=== PATIENT | female | born 1990 | race Caucasian/White ===

== ENCOUNTER → 2020-08-06 | Outpatient (CLI) | payer BC ==
--- NOTE | 2020-08-06 13:01 | US ---
EXAMINATION TYPE: Transabdominal DATE OF EXAM: 08/06/2020 12:32 PM COMPARISON: NONE CLINICAL HISTORY: R68.89 Abnormal clinical findings falling BHCG. HcG decreasing EXAM PERFORMED: Transvaginal (TV) and Transabdominal (TA) EXAM MEASUREMENTS: GESTATIONAL AGE / DATING Physician Established: ( weeks/ days) EDC: Dates by LMP: ( weeks/ days) EDC: Dates by First Scan: ( weeks/ days) EDC: Dates by Current Scan for: ( weeks/ days) EDC: MATERNAL ANATOMY Uterus: 9.0 x 4.7 x 4.3 cm Right Ovary: 3.9 x 1.6 x 2.4 cm Left Ovary: 3.9 x 1.6 x 2.4 cm Post CDS / Adnexa: wnl Presence of free fluid: No Presence of corpus luteal cyst: Yes, left ovary measuring 1.3 x 1.1 x 1.0 cm Presence of subchorionic bleed: No GESTATION / SURVEY IUP: No IUP seen at this time Date of LMP: 06/24/2020 Beta HcG (if available): 314 per patient No IUP visualized. Tiny anechoic area visualized within endometrium measuring 0.2 cm. Endometrium me asures 1.0 cm. Complex cyst left ovary measuring 1.3 x 1.1 x 1.0 cm Heterogeneous anteverted uterus.Endometrium thickened to 12 mm. Tiny 2 to 3 mm central anechoic area could reflect early gestational sac but is nonspecific. No yolk sac or pole. No free fluid. Both ovaries seen. Within the left ovary there is a 1.8 cm thin-walled cyst and peripheral hypervascu lar 1.3 cm thick-walled cyst suspected corpus luteal cyst. IMPRESSION: If beta hCG values are truly declining, ongoing would be favored. Ultrasound fin dings could reflect too early to visualize intrauterine . Ectopic not entirely exc luded. Serial beta hCG and ultrasound follow-up advised.
== END | disposition home or self-care (01) ==
LOC: RADUSWWP 12:03
PROVIDERS: ATTEND Obstetrics & Gynecology Obstetrics
DX: O00.90 Unspecified ectopic pregnancy without intrauterine pregnancy (principal)
CPT/HCPCS: 76801; 76817

== ENCOUNTER 2021-07-27 16:58 | Outpatient (CLI) | payer BC ==
[2021-07-27 19:30] VITALS: BP 127/70; PULSE 73; RESP 17; TEMP 97.8
--- NOTE | 2021-09-17 09:22 | P.MSEPDOC ---
Presenting Problems - Arrival Data Date of Arrival on Unit: 07/27/21 Time of Arrival on Unit: 16:58 Mode of Transport: Ambulatory - Complaint OB-Reason for Admission/Chief Complaint: Decreased Movement Medical History - Information : 1 Para: 0 Term: 0 : 0 Abortions: Spontaneous or Elective: 0 Number of Living Children: 0 - Gestational Age Gestational Age by EMILIE (wks/days): 27 Weeks and 2 Days Review of Systems - Review of Systems Constitutional: No problems Breast: No problems ENT: No problems Cardiovascular: No problems Respiratory: No problems Gastrointestinal: No problems Genitourinary: No problems Musculoskeletal: No problems Neurological: No problems Skin: No problems Vital Signs - Temperature Temperature: 97.8 F Temperature Source: Temporal Artery Scan - Pulse Pulse Oximetery Pulse Rate: 73 Pulse Assessment Method: Pulse Oximetry - Respirations Respiratory Rate: 17 Oxygen Delivery Method: Room Air O2 Sat by Pulse Oximetry: 98 - Blood Pressure Right Arm Blood Pressure: 127/70 Blood Pressure Mean: 89 Blood Pressure Source: Automatic Cuff Medical Screen Scoring - Assessment - Baby A Baseline FHR: 140 Heart Rate - NICHD Category: Category I (Normal) Physician Notification - Physician Notified Physician Notified Date: 07/27/21 Physician Notified Time: 17:40 Physician: Jackie Sanchez New Order Received: Yes - Notification Comment Comment: Spoke with Dr. Sanchez regarding pt coming into triage with C/O decreased movement, reviewed pt's category 1 strip and 30 seconds irritable contractions seen per [place], none felt per pt. Orders received include obtaining a urine sample - if clear, discharge home with pre-term labor instructions and instructions to increase fluids as well as follow up in the office tomorrow. Maternal Triage Index - Maternal Triage Index Presenting for scheduled procedure w/no complaint: No - Stat/Priority 1 Stat Priority 1: No - Urgent/Priority 2 Urgent Priority 2: Yes Provider Notified: Jackie Sanchez Provider Notified Time: 17:40 Criteria Met for Priority 2: Pt presents to triage with C/O decreased movement Disposition - Disposition OB Disposition: Discharge to home Discharge Date: 07/27/21 Discharge Time: 17:55 I agree with the RN Medical Screening Exam: Yes Case reviewed; plan agreed upon as documented in EMR&OBIX.: Yes Diagnosis: DECREASED MOVEMENTS, SECOND TRIMESTER, FETUS 1
== END 2021-07-27 17:55 | disposition home or self-care (01) ==
LOC: FBPOP 16:58
PROVIDERS: ATTEND Obstetrics & Gynecology Obstetrics
DX: O36.8120 Decreased fetal movements, second trimester, not applicable or unspecified (principal); Z3A.27 27 weeks gestation of pregnancy
CPT/HCPCS: 99213

== ENCOUNTER 2021-08-27 13:54 | Emergency (ER) | payer BC ==
--- NOTE | 2021-08-27 21:05 | ED ---
General Adult HPI - General Chief complaint: Upper Respiratory Infection Stated complaint: Cough-32 weeks preg. Time Seen by Provider: 08/27/21 21:04 Source: patient, RN notes reviewed Mode of arrival: ambulatory Limitations: no limitations - History of Present Illness Initial comments: 31-year-old female presents for cough. She states she's been sick for several weeks. Patient states that seemed to get better and worse again. 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 Patient states that she had fevers chills buttocks cough congestion. Patient had some posttussive emesis. Patient states that she is 32 weeks . - Related Data Home Medications Medication Instructions Recorded Confirmed Aspirin 81 mg PO DAILY 07/27/21 07/27/21 Citalopram Hydrobromide [CeleXA] 20 mg PO DAILY 07/27/21 07/27/21 metFORMIN HCL 500 mg PO DAILY 07/27/21 07/27/21 Allergies Allergy/AdvReac Type Severity Reaction Status Date / Time Sulfa (Sulfonamide Allergy Unknown Verified 08/27/21 15:41 Antibiotics) Review of Systems ROS Statement: Those systems with pertinent positive or pertinent negative responses have been documented in the HPI. ROS Other: All systems not noted in ROS Statement are negative. Past Medical History Past Medical History: No Reported History Additional Past Medical History / Comment(s): PCOS History of Any Multi-Drug Resistant Organisms: None Reported Past Surgical History: No Surgical Hx Reported Past Psychological History: Anxiety Smoking Status: Never smoker Past Alcohol Use History: None Reported Past Drug Use History: None Reported General Exam Limitations: no limitations General appearance: alert, in no apparent distress Head exam: Present: atraumatic, normocephalic, normal inspection Eye exam: Present: normal appearance, PERRL, EOMI. Absent: scleral icterus, conjunctival injection, periorbital swelling ENT exam: Present: normal exam, mucous membranes dry, mucous membranes moist Neck exam: Present: normal inspection, full ROM. Absent: tenderness, meningis mus, lymphadenopathy Respiratory exam: Present: normal lung sounds bilaterally. Absent: respiratory distress, wheezes, rales, rhonchi, stridor Cardiovascular Exam: Present: regular rate, normal rhythm, normal heart sounds. Absent: systolic murmur, diastolic murmur, rubs, gallop, clicks Course Vital Signs 08/27/21 08/27/21 15:39 21:05 Temperature 98.9 F 101 F H Pulse Rate 96 111 H Respiratory 16 18 Rate Blood Pressure 97/58 119/63 O2 Sat by Pulse 97 99 Oximetry Medical Decision Making - Medical Decision Making Patient is currently 19 positive vital signs are within normal limits. Patient discharged in stable condition. - Lab Data Lab Results 08/27/21 Range/Units 15:44 Coronavirus (PCR) Detected A (Not Detectd) Disposition Clinical Impression: COVID-19 Disposition: HOME SELF-CARE Condition: Stable Instructions (If sedation given, give patient instructions): Coronavirus Disease 2019 (COVID-19) Additional Instructions: Please return to the Emergency Department if symptoms worsen or any other concerns. Is patient prescribed a controlled substance at d/c from ED?: No Referrals: Freeman Ramirez MD [Primary Care Provider] - 1-2 days Time of Disposition: 21:05
[2021-08-27 21:08] VITALS: BP 119/63; PULSE 111; RESP 18; TEMP 101
== END 2021-08-27 21:13 | disposition home or self-care (01) ==
LOC: EC 13:54
DX: O98.513 Other viral diseases complicating pregnancy, third trimester (principal); U07.1 COVID-19; Z3A.32 32 weeks gestation of pregnancy; Z88.2 Allergy status to sulfonamides; Z79.82 Long term (current) use of aspirin
CPT/HCPCS: 87635; 99283

== ENCOUNTER 2021-10-17 01:25 | Inpatient (IN) | payer BC ==
[2021-10-17] MEDS ORDERED: OXYTOCIN 10 UNIT/ML 1 ML VIAL IM PRN (02:16)
[2021-10-17] MEDS ORDERED: CARBOPROST TROMETHAMINE 250 MCG/ML 1 ML AMP IM PRN (02:16)
[2021-10-17] MEDS ORDERED: LIDOCAINE 1% (PF) 10 MG/ML (30 ML SDV) SQ PRN (02:16)
[2021-10-17] MEDS ORDERED: METHYLERGONOVINE 0.2 MG/ML 1 ML AMP IM PRN (02:16)
[2021-10-17] MEDS ORDERED: TERBUTALINE 1 MG/ML VIAL SQ PRN (02:16)
[2021-10-17] MEDS ORDERED: BUTORPHANOL 1 MG/ML 1 ML VIAL IV PRN (02:18)
[2021-10-17] MEDS: LACTATED RINGERS 1,000 ML IV SCH ×2 (02:27→05:15)
[2021-10-17] MEDS ORDERED: OXYTOCIN 30 UNITS/500 ML NS 30 UNIT in SALINE 1 500ML.BAG IV SCH (02:30)
[2021-10-17] MEDS ORDERED: PENICILLIN G POTASSIUM 5,000,000 UNIT in DEXTROSE 5% IN WATER 100 ML IVPB ONE ×2 (02:30)
[2021-10-17] MEDS ORDERED: LACTATED RINGERS 1,000 ML IV SCH (02:30)
[2021-10-17 02:33] LABS: Basophils # (A) 0.1 k/uL (0-0.2); Basophils % (A) 1 %; Eosinophils # (A) 0.1 k/uL (0-0.7); Eosinophils % (A) 1 %; HCT 38.7 % (34.0-46.0); Lymphocytes # (A) 2.2 k/uL (1.0-4.8); Lymphocytes % (A) 17 %; MCH 31.6 pg (25.0-35.0); MCHC 33.6 g/dL (31.0-37.0); MCV 94.1 fL (80.0-100.0); Mean Platelet Volume 9.4; Monocytes # (A) 0.9 k/uL (0-1.0); Monocytes % (A) 7 %; Neutrophils # (A) 9.3 k/uL (1.3-7.7); Neutrophils % (A) 72 %; Platelet Count 268 k/uL (150-450); RBC 4.11 m/uL (3.80-5.40); RDW 14.5 % (11.5-15.5)
[2021-10-17] MEDS ORDERED: fentaNYL (PF) 50 MCG/ML 5 ML AMP ONE (04:43)
[2021-10-17] MEDS ORDERED: ROPIVACAINE 5MG/ML 20ML VIAL ONE (04:43)
[2021-10-17] MEDS ORDERED: SODIUM CHLORIDE 0.9% 100 ML BAG ONE (04:43)
[2021-10-17] MEDS: PENICILLIN G POTASSIUM 2,500,000 UNIT in DEXTROSE 5% IN WATER 100 ML IVPB SCH ×4 (06:33→16:53)
--- NOTE | 2021-10-17 08:12 | P.HPOB ---
History of Present Illness H&P Date: 10/17/21 Chief Complaint: Water broke this morning This is a 30-year-old female 3 para 0020 EDC 10/24/2021 at 39 weeks gestation who presents with the complaint of her water breaking at home. She denies vaginal bleeding or fluid leakage. Fetus is been active throughout the . Past medical history significant for anxiety and depression, and PCO OS. Past surgical history tympanic tubes placed in the ears as a child. Current medications Celexa 20 mg daily, metformin 500 mg daily, vitamin daily, baby aspirin daily. ALLERGIES include sulfa drugs to which reports a rash hives and swelling. Family history significant for type both thyroidism, height per tension, depression, Raynaud's syndrome. Social history patient is a teacher at the [employer], she is , she denies tobacco alcohol or drug use. history is significant for blood type O+, rubella status nonimmune. VDRL testing, urine culture, hepatitis B surface antigen, HIV testing, gonorrhea and chlamydia cultures all negative. One-hour Glucola 101, repeat 131. Positive group B strep cultures. On exam patient is 5 foot 3 inches, 198 pounds, blood pressure 131/83. Vital signs are stable and she is afebrile. The general physical exam is within nor mal limits. Cervix is 9 cm dilated, 90% effaced, -2 station, with a bulging fore bag. Artificial amniorrhexis reveals an abundant amount of meconium- stained fluid. heart rate is in the 140s with very good variability. Impression: 39 week intrauterine , active spontaneous labor. Meconium- stained fluid. Positive group B strep cultures, penicillin G given, 2 doses already received. Plan continue oxytocin augmentation as needed. Continue close maternal and surveillance. Epidural has been placed per patient request. Anticipating normal spontaneous vaginal delivery. Review of Systems Constitutional: Reports as per HPI Past Medical History Past Medical History: No Reported History Additional Past Medical History / Comment(s): PCOS History of Any Multi-Drug Resistant Organisms: None Reported Past Surgical History: No Surgical Hx Reported Past Psychological History: Anxiety Smoking Status: Never smoker Past Alcohol Use History: None Reported Past Drug Use History: None Reported - Past Family History Mother Family Medical History: Hypertension Medications and Allergies Home Medications Medication Instructions Recorded Confirmed Type Aspirin 81 mg PO DAILY 07/27/21 10/17/21 History Citalopram Hydrobromide [CeleXA] 20 mg PO DAILY 07/27/21 10/17/21 History metFORMIN HCL 500 mg PO DAILY 07/27/21 10/17/21 History Allergies Allergy/AdvReac Type Severity Reaction Status Date / Time Sulfa (Sulfonamide Allergy Unknown Verified 10/17/21 01:39 Antibiotics) Exam Vital Signs Temp Pulse Resp BP 10/17/21 01:38 97.7 F 85 18 131/83 Intake and Output 10/16/21 10/17/21 10/17/21 22:59 06:59 14:59 Intake Total 1100 Balance 1100 Intake: IV 1100 Other: # Voids 4 Weight 89.811 kg See dictation under HPI please Results Result Diagrams: 10/17/21 02:23 Abnormal Lab Results - Last 24 Hours (Table) 10/17/21 Range/Units 02:23 WBC 13.0 H (3.8-10.6) k/uL Neutrophils # 9.3 H (1.3-7.7) k/uL Assessment and Plan Assessment: 39 week intrauterine , labor ongoing, meconium-stained fluid, positive group B strep cultures. 2 doses of penicillin G already received per hospital protocol. Epidural placed per patient request. Plan: Continue close maternal and surveillance. Penicillin G per protocol. Oxytocin as needed. Anticipate normal spontaneous vaginal delivery. Time with Patient: Less than 30
[2021-10-17] MEDS ORDERED: diphenhydrAMINE 25 MG CAP PO PRN (10:07)
[2021-10-17] MEDS ORDERED: BENZOCAINE/MENTHOL SPRAY 1 GM/SPRAY AEROSOL TOPICAL PRN (10:07)
[2021-10-17] MEDS ORDERED: HYDROCORTISONE 2.5% RECTAL CREAM 30 GM TUBE RECTAL PRN (10:07)
[2021-10-17] MEDS ORDERED: diphenhydrAMINE 50 MG/ML 1 ML VIAL IVP PRN ×2 (10:07)
[2021-10-17] MEDS ORDERED: ZOLPIDEM 5 MG TAB PO PRN (10:07)
[2021-10-17] MEDS ORDERED: diphenhydrAMINE 50 MG CAP PO PRN (10:07)
[2021-10-17] MEDS ORDERED: LANOLIN CREAM 5 GM TUBE TOPICAL PRN (10:07)
[2021-10-17] MEDS ORDERED: SIMETHICONE 80 MG CHEWABLE PO PRN (10:07)
[2021-10-17] MEDS ORDERED: diphenhydrAMINE ELIXIR 25 MG/10 ML CUP PO PRN (10:07)
[2021-10-17] MEDS ORDERED: ACETAMINOPHEN TAB 325 MG TAB PO PRN (10:07)
--- NOTE | 2021-10-17 10:07 | P.PROBDLV ---
Vaginal Delivery Note - . Vaginal Delivery Note: This is a 30-year-old female 3 para 0020 EDC 10/24/2021 at 39 weeks gestation who presented with spontaneous amniorrhexis at home. She states the fluid was clear. She was 1 cm and 60% effaced on admission. Group B strep cultures positive, blood type O+, rubella nonimmune. Please see my dictated history and physical for details. Artificial amniorrhexis revealed dark meconium-stained fluid. Epidural was placed per her request. Oxytocin was started and titrated per hospital protocol. Patient did receive 2 doses of penicillin G per our hospital protocol. She became completely dilated at 0900 hrs. and began the second stage of labor at that time. Good maternal expulsive effort was noted. Perineal body was prepped and draped in usual sterile fashion. The perineal body was injected with 1% lidocaine and a small midline episiotomy was performed for suspicion of large head. Infant's head delivered occiput anterior and he restituted accordingly. There was no nuchal cord noted, however there was a large loop of cord noted that delivered along side the 's neck. The left or anterior shoulder was easily delivered from underneath the pubic symphysis at which time the oropharynx, nasopharynx, and external nares were all bulb suctioned on the perineal body. Patient was officially delivered of a liveborn male at 0938 hours. Umbilical cord was doubly clamped and ligated, he was handed to waiting nurses for evaluation where scores of 7 and 9 at one and 5 minutes respectively were given. The placenta delivered spontaneously, it was inspected and noted to be intact with trivascular cord and darkly meconium stained. For this reason it was sent to pathology for further evaluation. The uterus is then massaged. Inspection of cervix, vagina, perineum, periurethral, and perirectal areas revealed no extension of the small midline episiotomy. It was repaired in the usual fashion using repeat suture. Total estimated blood loss 200 mL's. Patient is requesting circumcision for her son. All sponge needle and enhancement counts are correct at the end of our procedure.
[2021-10-17] MEDS: IBUPROFEN 600 MG TAB PO SCH ×3 (10:53→23:44)
[2021-10-17] MEDS ORDERED: MEASLES-MUMPS-RUBELLA VACC/PF 12,500 UNIT/0.5 ML VIAL SQ ONE (13:51)
[2021-10-17] MEDS: SENNOSIDES-DOCUSATE SODIUM 1 EACH TAB PO SCH (21:30)
[2021-10-18] MEDS: SENNOSIDES-DOCUSATE SODIUM 1 EACH TAB PO SCH ×2 (07:41→19:32)
[2021-10-18] MEDS: IBUPROFEN 600 MG TAB PO SCH ×4 (07:41→23:52)
--- NOTE | 2021-10-18 07:53 | P.PN ---
Subjective Progress Note Date: 10/18/21 Principal diagnosis: day #1 No complaints. Baby in nursery. Positive flatus, pain well managed. Objective - Vital Signs Vital signs: Vital Signs Temp 97.7 F 10/18/21 07:33 Pulse 85 10/18/21 07:33 Resp 16 10/18/21 07:33 BP 133/85 10/18/21 07:33 Pulse Ox 98 10/18/21 04:00 Intake & Output 10/17/21 10/18/21 10/18/21 18:59 06:59 18:59 Output Total 1155 Balance -1155 Output: Urine 600 Estimated Blood Loss 400 Output, Quantitative 155 Blood Loss Other: # Voids 1 2 - Constitutional General appearance: Present: average body habitus, cooperative - EENT Eyes: Present: PERRLA ENT: Present: hearing grossly normal - Respiratory Respiratory: bilateral: CTA - Cardiovascular Rhythm: regular - Gastrointestinal General gastrointestinal: Present: normal bowel sounds - Genitourinary Genitourinary Comment(s): Fundus firm, midline, symmetric and 18 week size, nontender. - Neurologic Neurologic: Present: CNII-XII intact - Musculoskeletal Musculoskeletal: Present: gait normal, strength equal bilaterally - Psychiatric Psychiatric: Present: A&O x's 3, appropriate affect, intact judgment & insight - Labs CBC & Chem 7: 10/17/21 02:23 Assessment and Plan Assessment: Doing well day #1 Plan: Continue care. Likely discharge home tomorrow. Time with Patient: Less than 30
[2021-10-19] MEDS: IBUPROFEN 600 MG TAB PO SCH ×2 (05:51→14:51)
[2021-10-19] MEDS: SENNOSIDES-DOCUSATE SODIUM 1 EACH TAB PO SCH (07:47)
--- NOTE | 2021-10-19 09:20 | P.DS ---
Providers Date of admission: 10/17/21 01:48 Expected date of discharge: 10/19/21 Attending physician: Shantell Nguyen Primary care physician: Stated None - Discharge Diagnosis(es) (1) 39 weeks gestation of Current Visit: Yes Status: Acute (2) SROM (spontaneous rupture of membranes) Current Visit: Yes Status: Acute (3) Positive GBS test Current Visit: Yes Status: Acute (4) Status post normal vaginal delivery Current Visit: Yes Status: Acute (5) Meconium in amniotic fluid Current Visit: Yes Status: Acute Hospital Course: This is a 30 yo G1 now P1 that presented to labor and delivery with c/o SROM at home on 10/17. Patient receiving routine care which has been essentially uncomplicated. For full details the dictated history and physical. Patient was known group B beta strep positive. Patient was admitted to labor and delivery artificial rupture of membranes revealed dark meconium-stained fluid. Patient did receive epidural for analgesia. Pitocin augmentation of labor was begun, patient did receive 2 doses of antibiotics for her group beta strep prophylaxis. Patient had a normal spontaneous vaginal delivery of a viable male infant at 938, weight of 7 lbs. 13 oz. remains in the nursery. Patient has done well . She is involuting and voiding without difficulty. She is tolerating regular diet without nausea or vomiting. She states her pain is well-controlled. She will be discharged home later this evening. Patient Condition at Discharge: Good Plan - Discharge Summary New Discharge Prescriptions: No Action Aspirin 81 mg PO DAILY Citalopram Hydrobromide [CeleXA] 20 mg PO DAILY metFORMIN HCL 500 mg PO DAILY Discharge Medication List Aspirin 81 mg PO DAILY 07/27/21 [History] Citalopram Hydrobromide [CeleXA] 20 mg PO DAILY 07/27/21 [History] metFORMIN HCL 500 mg PO DAILY 07/27/21 [History] Follow up Appointment(s)/Referral(s): Jackie Sanchez DO [Doctor of Osteopathic Medicine] - 4 Weeks Patient Instructions/Handouts: Vaginal Delivery (GEN), Vaginal Delivery (DC) Discharge Disposition: HOME SELF-CARE
[2021-10-19 15:08] VITALS: BP 125/78; PULSE 80; RESP 16; TEMP 97.7
== END 2021-10-19 18:03 | disposition home or self-care (01) | DRG 807 ==
LOC: FBPOP 01:25 → 4FBP 01:48
PROVIDERS: ADMIT Obstetrics & Gynecology; ATTEND Obstetrics & Gynecology
PROC: 10E0XZZ Delivery of Products of Conception, External Approach (ICD-10-PCS; principal; 2021-10-17)
PROC: 10907ZC Drainage of Amniotic Fluid, Therapeutic from Products of Conception, Via Natural or Artificial Opening (ICD-10-PCS; 2021-10-17)
PROC: 3E033VJ Introduction of Other Hormone into Peripheral Vein, Percutaneous Approach (ICD-10-PCS; 2021-10-17)
DX: O99.824 Streptococcus B carrier state complicating childbirth (principal); Z37.0 Single live birth; O99.344 Other mental disorders complicating childbirth; F41.9 Anxiety disorder, unspecified; O77.0 Labor and delivery complicated by meconium in amniotic fluid; F32.A Depression, unspecified; O69.89X0 Labor and delivery complicated by other cord complications, not applicable or unspecified; O99.284 Endocrine, nutritional and metabolic diseases complicating childbirth; E28.2 Polycystic ovarian syndrome; Z3A.39 39 weeks gestation of pregnancy; Z79.82 Long term (current) use of aspirin; Z79.84 Long term (current) use of oral hypoglycemic drugs; Z79.899 Other long term (current) drug therapy; Z81.8 Family history of other mental and behavioral disorders; Z82.49 Family history of ischemic heart disease and other diseases of the circulatory system; Z88.2 Allergy status to sulfonamides
CPT/HCPCS: 59025; 84112; 85025; 86850; 86900; 86901; 88307; 90707; 99213

== ENCOUNTER → 2023-07-24 | Outpatient (CLI) | payer BC | END | disposition home or self-care (01) | LOC: LABWHC1 15:25 | PROVIDERS: ATTEND Obstetrics & Gynecology Obstetrics | DX: O20.0 Threatened abortion (principal); Z3A.00 Weeks of gestation of pregnancy not specified | CPT/HCPCS: 36415; 84144; 84702 ==

== ENCOUNTER → 2023-07-26 | Outpatient (CLI) | payer BC | END | disposition home or self-care (01) | LOC: LABWHC1 15:44 | PROVIDERS: ATTEND Obstetrics & Gynecology Obstetrics | DX: O20.0 Threatened abortion (principal); Z3A.00 Weeks of gestation of pregnancy not specified | CPT/HCPCS: 36415; 84702 ==

== ENCOUNTER 2024-03-26 21:00 | Outpatient (CLI) | payer BC ==
[2024-03-26 21:32] VITALS: BP 125/74; PULSE 72; RESP 16; TEMP 96.7
--- NOTE | 2024-05-21 20:33 | P.MSEPDOC ---
Presenting Problems - Arrival Data Date of Arrival on Unit: 03/26/24 Time of Arrival on Unit: 21:00 Mode of Transport: Ambulatory - Complaint OB-Reason for Admission/Chief Complaint: Decreased Movement Comment: Patient arrives to triage with complaint of decreased movement, states that 1 hour ago she laid down and only felt 3 small movements which is not normal for her. Medical History - Information : 2 Para: 1 Term: 1 : 0 Abortions: Spontaneous or Elective: 0 Number of Living Children: 1 - Gestational Age Gestational Age by EMILIE (wks/days): 38 Weeks and 6 Days - History Complications: GBS+ Review of Systems - Review of Systems Constitutional: No problems Breast: No problems ENT: No problems Cardiovascular: No problems Respiratory: No problems Gastrointestinal: No problems Genitourinary: No problems Musculoskeletal: No problems Neurological: No problems Skin: No problems Vital Signs - Temperature Temperature: 96.7 F Temperature Source: Oral - Pulse Right Brachial Pulse Rate: 72 Pulse Assessment Method: Automatic Cuff - Respirations Respiratory Rate: 16 Oxygen Delivery Method: Room Air O2 Sat by Pulse Oximetry: 96 - Blood Pressure Right Arm Blood Pressure: 125/74 Blood Pressure Mean: 91 Blood Pressure Source: Automatic Cuff Medical Screen Scoring - Assessment - Baby A Baseline FHR: 130 Heart Rate - NICHD Category: Category I (Normal) NST: Reactive Physician Notification - Physician Notified Physician Notified Date: 03/26/24 Physician Notified Time: 21:28 Physician: Rush New Order Received: Yes (discharge) - Notification Comment Comment: Report given to Dr. Ambrose on patient who presents for decreased movement, reactive nst, vitals wnl, and patiet reports feeling normal movement. Patient to be discharged home. Maternal Triage Index - Stat/Priority 1 Stat Priority 1: Yes Provider Notified: Clarisse Ambrose Provider Notified Time: 21:32 Criteria Met for Priority 1: decreased movement- initial fhr 140 and react aida nst obtained - Urgent/Priority 2 Urgent Priority 2: No - Prompt/Priority 3 Prompt Priority 3: No - Non-Urgent/Priority 4 Non-Urgent Priority 4: No Disposition - Disposition OB Disposition: Discharge to home Discharge Date: 03/26/24 Discharge Time: 21:32 I agree with the RN Medical Screening Exam: Yes Physician's MSE Comment: I have neither seen nor examined the patient Case reviewed; plan agreed upon as documented in EMR&OBIX.: Yes Diagnosis: DECREASED MOVEMENTS, THIRD TRIMESTER, UNSP
== END 2024-03-26 21:33 ==
LOC: FBPOP 21:00
PROVIDERS: ATTEND Obstetrics & Gynecology
DX: O36.8131 Decreased fetal movements, third trimester, fetus 1 (principal); O99.820 Streptococcus B carrier state complicating pregnancy; Z3A.38 38 weeks gestation of pregnancy; Z88.2 Allergy status to sulfonamides
CPT/HCPCS: 59025; 99213

== ENCOUNTER 2024-03-28 06:00 | Inpatient (IN) | payer BC ==
[2024-03-28] MEDS ORDERED: LIDOCAINE 0.5% (PF) 5 MG/ML (50 ML SDV) SQ PRN (06:36)
[2024-03-28] MEDS ORDERED: CARBOPROST TROMETHAMINE 250 MCG/ML 1 ML AMP IM PRN (06:36)
[2024-03-28] MEDS ORDERED: METHYLERGONOVINE 0.2 MG/ML 1 ML AMP IM PRN (06:36)
[2024-03-28] MEDS ORDERED: miSOPROStoL 200 MCG TAB PO PRN (06:36)
[2024-03-28] MEDS ORDERED: TERBUTALINE 1 MG/ML VIAL SQ PRN (06:36)
[2024-03-28] MEDS ORDERED: OXYTOCIN 10 UNIT/ML 1 ML VIAL IM PRN (06:36)
[2024-03-28] MEDS ORDERED: miSOPROStoL 200 MCG TAB RECTAL PRN (06:36)
[2024-03-28] MEDS ORDERED: TRANEXAMIC 1,000 MG/100ML-NACL 1,000 MG in EMPTY BAG 1 BAG IV PRN (06:36)
[2024-03-28] MEDS: LACTATED RINGERS 1,000 ML IV SCH (06:51)
[2024-03-28] MEDS: AMPICILLIN 2,000 MG in SODIUM CHLORIDE 0.9% 100 ML IVPB STA (06:54)
[2024-03-28] MEDS: OXYTOCIN 30 UNITS/500 ML NS 30 UNIT in SALINE 1 500ML.BAG IV SCH (07:05)
[2024-03-28 07:19] LABS: Basophils % (A) 0 %; Eosinophils # (A) 0.1 k/uL (0-0.7); Eosinophils % (A) 1 %; HCT 34.4 % (34.0-46.0); HGB 11.6 gm/dL (11.4-16.0); Lymphocytes # (A) 2.5 k/uL (1.0-4.8); Lymphocytes % (A) 23 %; MCH 31.3 pg (25.0-35.0); MCHC 33.8 g/dL (31.0-37.0); MCV 92.4 fL (80.0-100.0); Mean Platelet Volume 9.2; Monocytes # (A) 0.7 k/uL (0-1.0); Monocytes % (A) 6 %; Neutrophils # (A) 7.4 k/uL (1.3-7.7); Neutrophils % (A) 68 %; Platelet Count 254 k/uL (150-450); RBC 3.72 m/uL (3.80-5.40); RDW 14.3 % (11.5-15.5); WBC 10.9 k/uL (3.8-10.6)
[2024-03-28 08:20] VITALS: RESP 16
[2024-03-28] MEDS ORDERED: SODIUM CHLORIDE 0.9% 250 ML BAG ONE (10:17)
[2024-03-28] MEDS ORDERED: ROPIVACAINE 5 MG/ML 30 ML VIAL ONE (10:17)
[2024-03-28] MEDS ORDERED: fentaNYL (PF) 50 MCG/ML 5 ML AMP ONE (10:17)
[2024-03-28] MEDS: AMPICILLIN 1,000 MG in SODIUM CHLORIDE 0.9% 50 ML IVPB SCH (11:02)
[2024-03-28] MEDS ORDERED: HYDROCORTISONE 2.5% RECTAL CREAM 30 GM TUBE RECTAL PRN (14:31)
[2024-03-28] MEDS ORDERED: ZOLPIDEM 5 MG TAB PO PRN (14:31)
[2024-03-28] MEDS ORDERED: LANOLIN CREAM 1 GM TUBE TOPICAL PRN (14:31)
[2024-03-28] MEDS ORDERED: BENZOCAINE/MENTHOL SPRAY 1 GM/SPRAY AEROSOL TOPICAL PRN (14:31)
[2024-03-28] MEDS ORDERED: diphenhydrAMINE 50 MG CAP PO PRN (14:31)
[2024-03-28] MEDS ORDERED: diphenhydrAMINE 50 MG/ML 1 ML VIAL IVP PRN ×2 (14:31)
[2024-03-28] MEDS ORDERED: diphenhydrAMINE 25 MG CAP PO PRN (14:31)
[2024-03-28] MEDS ORDERED: SIMETHICONE 80 MG CHEWABLE PO PRN (14:31)
[2024-03-28] MEDS ORDERED: OXYTOCIN 30 UNITS/500 ML NS 30 UNIT in SALINE 1 500ML.BAG IV SCH (14:45)
[2024-03-28] MEDS: IBUPROFEN 600 MG TAB PO SCH (18:38)
[2024-03-28] MEDS: ACETAMINOPHEN TAB 325 MG TAB PO PRN (20:25)
[2024-03-28] MEDS: SENNOSIDES-DOCUSATE SODIUM 1 EACH TAB PO SCH (20:26)
[2024-03-29] MEDS: ROPIVACAINE 225 MG, fentaNYL (PF). 450 MCG in SODIUM CHLORIDE 0.9% 171 ML EPIDURAL ONE (05:27)
[2024-03-29 06:49] LABS: Basophils % (A) 0 %; Eosinophils # (A) 0.1 k/uL (0-0.7); Eosinophils % (A) 1 %; HCT 32.1 % (34.0-46.0); HGB 10.4 gm/dL (11.4-16.0); Hypochromasia Slight; Lymphocytes # (A) 2.1 k/uL (1.0-4.8); Lymphocytes % (A) 18 %; MCH 30.6 pg (25.0-35.0); MCHC 32.3 g/dL (31.0-37.0); MCV 94.9 fL (80.0-100.0); Monocytes # (A) 0.8 k/uL (0-1.0); Monocytes % (A) 7 %; Neutrophils # (A) 8.4 k/uL (1.3-7.7); Neutrophils % (A) 72 %; Platelet Count 227 k/uL (150-450); RBC 3.38 m/uL (3.80-5.40); RDW 14.5 % (11.5-15.5); WBC 11.7 k/uL (3.8-10.6)
[2024-03-29 08:21] VITALS: BP 146/78; PULSE 71; TEMP 98.8
--- NOTE | 2024-03-29 09:25 | P.HPOB ---
History of Present Illness H&P Date: 03/28/24 Chief Complaint: IUP @ 39 weeks This is a 33yo at 39 0/7 weeks that present for induction of labor. She has been receiving routine care with myself has been essentially uncomplicated. Patient notes good movement denies vaginal bleeding or loss of fluid. It is okay On blood work patient has a blood type of O+, rubella status immune, hepatitis B surface engine negative, HIV negative, RPR is nonreactive, grew beta strep culture was positive. Review of Systems Constitutional: Denies chills, Denies fatigue, Denies fever Ears, nose, mouth and throat: Denies headache Cardiovascular: Reports leg edema Respiratory: Denies dyspnea Gastrointestinal: Denies nausea, Denies vomiting Genitourinary: Reports Past Medical History Past Medical History: No Reported History Additional Past Medical History / Comment(s): PCOS History of Any Multi-Drug Resistant Organisms: None Reported Past Surgical History: No Surgical Hx Reported Past Anesthesia/Blood Transfusion Reactions: No Reported Reaction Past Psychological History: Anxiety Smoking Status: Never smoker Past Alcohol Use History: None Reported Past Drug Use History: None Reported - Past Family History Mother Family Medical History: No Reported History, Hypertension Medications and Allergies Home Medications Medication Instructions Recorded Confirmed Type Aspirin 81 mg PO DAILY 07/27/21 03/28/24 History Citalopram Hydrobromide [CeleXA] 20 mg PO DAILY 07/27/21 03/28/24 History Pantoprazole [Protonix] 1 tab PO DAILY 03/28/24 03/28/24 History metFORMIN HCL ER [Glucophage XR] 500 mg PO DAILY 03/28/24 03/28/24 History Allergies Allergy/AdvReac Type Severity Reaction Status Date / Time Sulfa (Sulfonamide Allergy Unknown Verified 03/26/24 21:14 Antibiotics) Exam Osteopathic Statement: *. No significant issues noted on an osteopathic structural exam other than those noted in the History and Physical/Consult. Vital Signs Temp Pulse Resp BP Pulse Ox 03/29/24 08:00 98.8 F 71 16 146/78 03/29/24 00:00 98.2 F 74 16 103/67 96 03/28/24 19:40 97.9 F 76 16 113/70 96 03/28/24 16:30 69 16 119/62 03/28/24 16:01 98.2 F 73 16 120/56 03/28/24 15:45 73 16 122/62 03/28/24 15:30 60 16 136/83 03/28/24 15:15 68 16 119/78 03/28/24 15:00 66 16 127/78 03/28/24 14:45 83 16 119/65 03/28/24 14:30 98.0 F 88 16 122/64 Intake and Output 03/28/24 03/29/24 03/29/24 22:59 06:59 14:59 Intake Total 600 300 Output Total 53 Balance 547 300 Intake: Oral 600 300 Output: Estimated Blood Loss 53 Other: # Voids 1 1 Targeted physical exam is performed this date General is well-nourished well- developed female in no acute distress, breathing is nonlabored, heart has a regular rate and rhythm, abdomen is gravid, on cervical exam she is 3, 58, -2 station amniotomy was performed and clear fluid obtained. heart tones noted category 1 and she is wili irregularly. Results Result Diagrams: 03/29/24 06:11 Abnormal Lab Results - Last 24 Hours (Table) 03/29/24 Range/Units 06:11 WBC 11.7 H (3.8-10.6) k/uL RBC 3.38 L (3.80-5.40) m/uL Hgb 10.4 L (11.4-16.0) gm/dL Hct 32.1 L (34.0-46.0) % Neutrophils # 8.4 H (1.3-7.7) k/uL Assessment and Plan (1) 39 weeks gestation of Current Visit: No Status: Acute Code(s): Z3A.39 - 39 WEEKS GESTATION OF SNOMED Code(s): 05223643 (2) Positive GBS test Current Visit: No Status: Acute Code(s): B95.1 - STREPTOCOCCUS, GROUP B, CAUSING DISEASES [facility] SNOMED Code(s): 618222406 Plan: 33-year-old G4 para 1-0-2-1 that presents to labor and delivery for scheduled induction of labor. Patient is admitted and Pitocin induction of labor has begun. Patient underwent amniotomy clear fluid was obtained. Patient does desire epidural when appropriate.
--- NOTE | 2024-03-29 09:28 | P.PROBDLV ---
Vaginal Delivery Note - . Vaginal Delivery Note: Findings viable female delivered at 1415, weight of 7 pounds 12 ounces 33-year-old 4 para 1-0-2-1 at 39-0/7 weeks as presented to labor and delivery for scheduled induction of labor. Patient was admitted Pitocin induction of labor was begun per hospital protocol. Patient underwent amniotomy and clear fluid was obtained. Patient did become uncomfortable and request epidural. Epidural was placed without difficulty by the anesthesia department. Patient progressed to complete. Once completely dilated patient began pushing and had a normal spontaneous vaginal delivery of a viable female infant at 1415, weight of 7 pounds 12 ounces, Apgars of 8 and 9 at 1 and 5 minutes respectively. Patient did undergo a midline episiotomy, second-degree. After 2-minute delay the umbilical cord was doubly clamped and cut placenta was delivered spontaneously. Uterus was noted to be firm below the umbilicus after delivery of the placenta. On inspection of the episiotomy it was noted to be second- degree midline, it was repaired in the usual fashion with 3-0 Rapide. Hemostasis was noted after closure. Patient and tolerated delivery well, all counts from the correct x 2 at the end of the delivery.
--- NOTE | 2024-03-29 09:32 | P.DS ---
Providers Date of admission: 03/28/24 06:06 Expected date of discharge: 03/29/24 Attending physician: Jackie Sanchez Primary care physician: Freeman Ramirez - Discharge Diagnosis(es) (1) 39 weeks gestation of Current Visit: No Status: Acute (2) Positive GBS test Current Visit: No Status: Acute (3) Obstetrical laceration, second degree Current Visit: Yes Status: Acute (4) Status post normal vaginal delivery Current Visit: No Status: Acute Hospital Course: 33-year-old 4 now para 2-0-2-2 that presented to labor and delivery at 39-0/7 weeks for elective induction of labor. Patient was admitted and Pitocin induction of labor was begun. Patient underwent amniotomy and clear fluid was obtained. Patient did receive an epidural for analgesia throughout the labor process. Patient had a normal spontaneous vaginal delivery of a viable female infant at 1415, weight of 7 pounds 12 ounces. Patient did undergo episiotomy during pushing. Second-degree laceration was appreciated and repaired in the usual fashion. Patient's course has been uneventful. On this day #1 she is ambulating and voiding without difficulty, she is tolerating a regular diet without nausea or vomiting, she states her lochia is minimal to moderate. She is breast-feeding without difficulty. She states she would like discharge home at 24 hours. Patient Condition at Discharge: Good Plan - Discharge Summary New Discharge Prescriptions: No Action Aspirin 81 mg PO DAILY Pantoprazole [Protonix] 1 tab PO DAILY Citalopram Hydrobromide [CeleXA] 20 mg PO DAILY metFORMIN HCL ER [Glucophage XR] 500 mg PO DAILY Discharge Medication List Aspirin 81 mg PO DAILY 07/27/21 [History] Citalopram Hydrobromide [CeleXA] 20 mg PO DAILY 07/27/21 [History] Pantoprazole [Protonix] 1 tab PO DAILY 03/28/24 [History] metFORMIN HCL ER [Glucophage XR] 500 mg PO DAILY 03/28/24 [History] Follow up Appointment(s)/Referral(s): Jackie Sanchez DO [Doctor of Osteopathic Medicine] - 1 Week Patient Instructions/Handouts: Vaginal Delivery (GEN), Vaginal Delivery (DC) Activity/Diet/Wound Care/Special Instructions: No intercourse, tub baths call with any fever, shakes or chills, with any pain not alleviated by over the counter meds, or with any questions or concerns. [id number] ibuprofen 600 mg 3 tablets every 6 hours as needed for pain Discharge Disposition: HOME SELF-CARE
== END 2024-03-29 16:15 | disposition home or self-care (01) | DRG 807 ==
LOC: 4FBP 06:06
PROVIDERS: ADMIT Obstetrics & Gynecology Obstetrics; ATTEND Obstetrics & Gynecology Obstetrics
PROC: 0KQM0ZZ Repair Perineum Muscle, Open Approach (ICD-10-PCS; principal; 2024-03-29)
PROC: 10E0XZZ Delivery of Products of Conception, External Approach (ICD-10-PCS; principal; 2024-03-29)
PROC: 3E033VJ Introduction of Other Hormone into Peripheral Vein, Percutaneous Approach (ICD-10-PCS; principal; 2024-03-29)
PROC: 10907ZC Drainage of Amniotic Fluid, Therapeutic from Products of Conception, Via Natural or Artificial Opening (ICD-10-PCS; principal; 2024-03-29)
DX: O99.824 Streptococcus B carrier state complicating childbirth (principal); Z37.0 Single live birth; O99.344 Other mental disorders complicating childbirth; E28.2 Polycystic ovarian syndrome; O99.284 Endocrine, nutritional and metabolic diseases complicating childbirth; O70.1 Second degree perineal laceration during delivery; F41.9 Anxiety disorder, unspecified; Z3A.39 39 weeks gestation of pregnancy; Z79.82 Long term (current) use of aspirin; Z79.84 Long term (current) use of oral hypoglycemic drugs; Z79.899 Other long term (current) drug therapy; Z88.2 Allergy status to sulfonamides
CPT/HCPCS: 85025; 86850; 86900; 86901